=== PATIENT | male | born 1960 | race Caucasian/White ===

== ENCOUNTER → 2016-08-13 | Outpatient (CLI) | payer OTHER ==
--- NOTE | ~2016-08-13 | CT4 ---
[facility] A Service of [facility] RADIOLOGY TEXT RESULTS PATIENT: JOHNATHAN SHAH LOCATION: [facility] : 64 UNIT #: [id number] AGE: [address]: Tremayne Bradford MD SEX: M ORDER DR: [id number] [address] [address] [id number] O MR#: [id number] Acc #: [id number] NAME: JOHNATHAN SHAH : 1960 SEX: M STUDY DATE/TIME: 08/13/2016 10:39 UNIT: [facility] ROOM: STUDY DESCRIPTION: CT Abd and Pelv Wo Cont Attending Physician: Tremayne Bradford M.D. Referring Physician: Tremayne Bradford M.D. Ordering Physician: Tremayne Bradford M.D. Primary Care Physician: Victor Manuel Johnson M.D. MEDICAL IMAGING REPORT This report is preliminary unless electronic signature is present. EXAM Abdomen and pelvis CT without contrast. HISTORY Chronic left-sided abdominal pain for more than 20 years. Prostatic enlargement. Evaluate for kidney stone disease suspected. TECHNIQUE Axial images were obtained without contrast. This CT exam was performed with one or more of the following radiation dose reduction techniques: automatic exposure control, adjustment of mA and/or kV according to patient size, and iterative reconstruction. FINDINGS The liver, spleen and pancreas are normal in size. No evidence of hydronephrosis. There is a nonobstructing 2 mm kidney stone in the lower pole stacy on the right. There is no evidence of hydronephrosis or hydroureter. No bladder stones are seen. There is no evidence of retroperitoneal adenopathy or ascites and no distended bowel loops are noted. In the pelvis, there is no evidence of adenopathy, mass or fluid collection. IMPRESSION Nonobstructing 2 mm kidney stone on the right. No acute inflammatory changes seen in the abdomen or pelvis. Dictated by... Ronny Cornell M.D. [facility] A Service of [facility] RADIOLOGY TEXT RESULTS PATIENT: JOHNATHAN SHAH LOCATION: [facility] : 64 UNIT #: [id number] AGE: [address]: Tremayne Bradford MD SEX: M ORDER DR: THIS IS AN ELECTRONICALLY VERIFIED REPORT Ronny Cornell M.D. at 08/15/2016 9:58 AM Eric TD: 08/14/2016 21:00 JOB #: [id number] MEDICAL IMAGING REPORT Page 1 of 1
== END | disposition home or self-care (01) ==
LOC: SCT 10:20
DX: N40.1 Benign prostatic hyperplasia with lower urinary tract symptoms (principal); N20.0 Calculus of kidney
CPT/HCPCS: 74176

== ENCOUNTER → 2016-10-22 | Outpatient (CLI) | payer OTHER ==
--- NOTE | ~2016-10-22 | US77 ---
[facility] A Service of [facility] & [facility] RADIOLOGY TEXT RESULTS PATIENT: JOHNATHAN SHAH LOCATION: [facility] : 64 UNIT #: [id number] AGE: [address]: Tremayne Bradford MD SEX: M ORDER DR: [id number] [facility] [address] [place] [place], [place] [address] [id number] O MR#: [id number] Acc #: [id number] NAME: JOHNATHAN SHAH : 1960 SEX: M STUDY DATE/TIME: 10/22/2016 12:40 UNIT: [facility] ROOM: STUDY DESCRIPTION: US Kidney Bilateral Complete Attending Physician: Tremayne Bradford M.D. Referring Physician: Tremayne Bradford M.D. Ordering Physician: Tremayne Bradford M.D. Primary Care Physician: Victor Manuel Johnson M.D. MEDICAL IMAGING REPORT This report is preliminary unless electronic signature is present EXAM Renal ultrasound. INDICATIONS Renal stone. This was identified on a prior CT from August 13, 2016. Patient reports left flank pain for several years. TECHNIQUE Nguyen-scale and color Doppler sonographic images were obtained through the kidneys and bladder. FINDINGS No hydronephrosis identified on either side. There are no solid or cystic renal masses. Scorer Single indicates a hyperechoic focus within the superior pole of the right kidney as a possible stone. I am actually not convinced that this represents a stone because I do not see any shadowing associated with it, and the patient really did not have a stone in this area on prior CT from August 13. Urinary bladder appears unremarkable. IMPRESSION. 1. No evidence of hydronephrosis on either side. 2. Scorer Single questions possible stone within the superior pole of the right kidney. Really not convinced that this is a true finding. Certainly the patient did not have a stone in this area on a recent CT from August of 2016. Dictated by... Karyn Harris M.D. THIS IS AN ELECTRONICALLY VERIFIED REPORT Karyn Harris M.D. at 10/25/2016 4:57 PM [facility] A Service of [facility] & [facility] RADIOLOGY TEXT RESULTS PATIENT: JOHNATHAN SHAH LOCATION: [facility] #: [id number] : 64 UNIT #: [id number] AGE: [address]: Tremayne Bradford MD SEX: M ORDER DR: SHALONDA/todd TD: 10/22/2016 20:41 JOB #: [id number] MEDICAL IMAGING REPORT Page 1 of 1 COPY
== END | disposition home or self-care (01) ==
LOC: CGUS 12:11
DX: N20.0 Calculus of kidney (principal)
CPT/HCPCS: 76770